=== PATIENT | female | born 2000 | race Two or more races ===

== ENCOUNTER → 2024-03-30 | Outpatient (CLI) | payer MEDICAID ==
[2024-03-30 11:18] LABS: Basophils # (auto) 0 10 ^3/uL (0-0.2); Basophils % (auto) 0.3 % (0.0-2.0); Eosinophils # (auto) 0.1 10 ^3/uL (0-0.8); Eosinophils % (auto) 1.5 % (0.0-7.0); Hematocrit 39.9 % (36.0-46.0); Hemoglobin 13.5 g/dL (12.2-16.2); Lymphocytes # (auto) 2.1 10 ^3/uL (0.4-5.4); Lymphocytes % (auto) 22.2 % (10.0-50.0); Mean Corpuscular Hemoglobin 30.6 pg (28.0-32.0); Mean Corpuscular Hgb Conc. 33.8 g/dL (32.0-36.0); Mean Corpuscular Volume 90.5 fL (80.0-100.0); Monocytes # (auto) 0.4 10 ^3/uL (0-1.3); Monocytes % (auto) 4.6 % (0.0-12.0); Neutrophils # (auto) 6.8 10 ^3/uL (1.6-8.6); Neutrophils % (auto) 71.4 % (37.0-80.0); Red Blood Cells 4.41 10^6/uL (4.0-5.20); White Blood Cell 9.5 10^3/uL (4.4-10.8)
[2024-03-30 12:00] LABS: Alanine Aminotransferase 13 U/L (7-40); Albumin 4.2 g/dL (3.2-4.8); Alkaline Phosphatase 114 U/L (46-116); Anion Gap 6 (5-15); Aspartate Aminotransferase 18 U/L (13-40); Bilirubin, Total 0.3 mg/dL (0.2-1.0); Calcium 9.5 mg/dL (8.5-10.1); Carbon Dioxide 26 mmol/L (20-30); Chloride 106 mmol/L (98-107); Glucose 73 mg/dL (74-106); Potassium 3.6 mmol/L (3.5-5.1); Sodium 138 mmol/L (136-145); Total Protein 6.9 g/dL (5.7-8.2)
[2024-03-30 12:04] LABS: Thyroid Stimulating Hormone 4.31 uIU/mL (0.358-3.74)
[2024-03-30 12:06] LABS: BUN/Creatinine Ratio 10.4 (10.0-20.0); Blood Urea Nitrogen < 5 mg/dL (9-23)
[2024-03-30 12:26] LABS: Amphetamine Screen, Urine Neg (NEGATIVE)
[2024-03-30 12:27] LABS: Barbiturate Scree,Urine Neg (NEGATIVE); Benzodiazephine Screen, Urine Neg (NEGATIVE); Cocaine Screen, Urine Neg (NEGATIVE)
[2024-03-30 12:28] LABS: Cannabinoid Screen, Urine Neg (NEGATIVE); Opiate Scree,Urine Neg (NEGATIVE); Phencyclidine Screen, Urine Neg (NEGATIVE)
[2024-03-31 09:06] LABS: RPR Non Reactive (Non Reactive)
[2024-03-31 10:07] LABS: Varicella Zoster IgG Antibody <135 index (Immune >165)
[2024-04-01 08:06] LABS: Chlamydia Trachomatis, NAA Negative (Negative); Neisseria gonorrhoeae, NAA Negative (Negative)
== END | disposition home or self-care (01) ==
LOC: LAB 10:30
PROVIDERS: ATTEND Obstetrics & Gynecology
DX: Z34.80 Encounter for supervision of other normal pregnancy, unspecified trimester (principal); Z3A.00 Weeks of gestation of pregnancy not specified
CPT/HCPCS: 36415; 80053; 80307; 83036; 84439; 84443; 84702; 85025; 86592; 86703; 86762; 86787; 86850; 86900; 86901; 87086; 87340

== ENCOUNTER → 2024-04-04 | Outpatient (CLI) | payer MEDICAID ==
[2024-04-06 16:06] LABS: QuantiFERON-TB Gold Plus Positive (Negative)
== END | disposition home or self-care (01) ==
LOC: LAB 08:15
PROVIDERS: ATTEND Obstetrics & Gynecology
DX: Z34.80 Encounter for supervision of other normal pregnancy, unspecified trimester (principal); Z3A.00 Weeks of gestation of pregnancy not specified
CPT/HCPCS: 82951

== ENCOUNTER 2024-06-11 10:50 | Inpatient (IN) | payer MEDICAID ==
[~2024-06-11] VITALS: Ht 157.5 cm; Wt 70.3 kg
[2024-06-11] VITALS (8 sets, daily range): BP systolic 103–114; BP diastolic 59–81; PULSE 68–80; RESP 16–18; TEMP 98.8; O2SAT 95–100
[2024-06-11] MEDS ORDERED: ePHEDrine SULFATE 50 MG/ML AMP IV ONE (11:19)
[2024-06-11 13:15] LABS: Fern Testing Positive
[2024-06-11 13:18] LABS: Urine Bacteria FEW /hpf (None Seen); Urine Blood Negative /uL (Negative); Urine Budding Yeast OCCASIONAL /hpf (None Seen); Urine Clarity Clear (Clear); Urine Protein, UAD Negative (Negative); Urine Specific Gravity 1.002 (1.001-1.035); Urine Urobilinogen Normal (Negative); Urine WBC 6 /hpf (0 - 5); Urine pH 6.5 (5.0-9.0)
[2024-06-11 13:19] LABS: Urine Color STRAW (Yellow)
[2024-06-11 14:32] LABS: Basophils # (auto) 0 10 ^3/uL (0-0.2); Basophils % (auto) 0.4 % (0.0-2.0); Eosinophils # (auto) 0.1 10 ^3/uL (0-0.8); Eosinophils % (auto) 0.6 % (0.0-7.0); Hematocrit 44.5 % (36.0-46.0); Hemoglobin 15.3 g/dL (12.2-16.2); Lymphocytes # (auto) 2.1 10 ^3/uL (0.4-5.4); Lymphocytes % (auto) 18.4 % (10.0-50.0); Mean Corpuscular Hemoglobin 30.8 pg (28.0-32.0); Mean Corpuscular Hgb Conc. 34.3 g/dL (32.0-36.0); Mean Corpuscular Volume 89.8 fL (80.0-100.0); Monocytes # (auto) 0.5 10 ^3/uL (0-1.3); Monocytes % (auto) 4.6 % (0.0-12.0); Neutrophils # (auto) 8.5 10 ^3/uL (1.6-8.6); Nucleated Red Blood Cells % 0.1 %; Platelet Count (auto) 201 10^3/uL (140-450); Red Blood Cells 4.95 10^6/uL (4.0-5.20); Red Cell Distribution Width 14.2 % (11.8-14.3); White Blood Cell 11.2 10^3/uL (4.4-10.8)
[2024-06-11 14:44] LABS: INR 0.97 (0.9-1.15); Partial Thromboplastin Time 28.2 SEC (24.5-34.5); Prothrombin Time 10.3 sec (9.3-11.8)
[2024-06-11 14:58] LABS: Alanine Aminotransferase 10 U/L (7-40); Albumin 4.2 g/dL (3.2-4.8); Alkaline Phosphatase 302 U/L (46-116); Anion Gap 8 (5-15); Aspartate Aminotransferase 14 U/L (13-40); Calcium 9.8 mg/dL (8.7-10.4); Carbon Dioxide 22 mmol/L (20-30); Chloride 107 mmol/L (98-107); Glucose 70 mg/dL (74-106); Potassium 3.7 mmol/L (3.5-5.1); Sodium 137 mmol/L (136-145)
[2024-06-11 14:59] LABS: Bilirubin, Total 0.6 mg/dL (0.2-1.0); Total Protein 6.9 g/dL (5.7-8.2)
[2024-06-11 15:06] LABS: BUN/Creatinine Ratio 9.4 (10.0-20.0); Blood Urea Nitrogen < 5 mg/dL (9-23)
[2024-06-11] MEDS: LACTATED RINGER'S 1,000 ML IV ONE (15:06)
[2024-06-11 15:14] LABS: Hepatitis B Surface Antigen Negative (Negative)
[2024-06-11 15:35] LABS: Hepatitis C Antibody Negative (Negative)
[2024-06-11] MEDS: ceFAZolin 2 GM/D5W50ml 50 ML IV ONE (15:52)
[2024-06-11] MEDS: SODIUM CITR/CITRIC ACID ORAL SOLN 30 ML PO SCH (15:54)
[2024-06-11] MEDS ORDERED: MORPHINE SULF PF 5 MG/10 ML VIAL ONE (16:07)
[2024-06-11] MEDS: LACTATED RINGER'S 1,000 ML IV SCH (16:11)
[2024-06-11] MEDS ORDERED: ONDANSETRON HCL 4 MG/2 ML VIAL ONE (18:08)
[2024-06-11] MEDS ORDERED: oxyTOCIN 10 UNIT/ML 10ML VIAL ONE (18:08)
[2024-06-11] MEDS ORDERED: ONDANSETRON HCL 4 MG/2 ML VIAL IV PRN ×2 (18:15→18:30)
[2024-06-11] MEDS ORDERED: KETOROLAC TROMETH 30 MG/ML 1ML VIAL IV PRN (18:15)
[2024-06-11] MEDS: GUM (CHEWING) 1 GUM CHEW CHEW ONE (18:15)
[2024-06-11] MEDS ORDERED: HYDROmorphone HCL 2 MG/ML VL/or syr IV PRN ×2 (18:15→18:30)
[2024-06-11] MEDS ORDERED: NALOXONE HCL 0.4 MG/ML VIAL IV PRN (18:30)
[2024-06-11] MEDS: NALBUPHINE HCL 10 MG/1ml INJECTION SUBCUT ONE (18:30)
[2024-06-11] MEDS ORDERED: DexAMETHasone SOD PHOS 10MG/1ML VIAL INJ IV PRN (18:30)
[2024-06-11 19:50] LABS: Amphetamine Screen, Urine Neg (NEGATIVE); Barbiturate Scree,Urine Neg (NEGATIVE); Benzodiazephine Screen, Urine Neg (NEGATIVE); Cocaine Screen, Urine Neg (NEGATIVE); Opiate Scree,Urine Neg (NEGATIVE); Phencyclidine Screen, Urine Neg (NEGATIVE)
[2024-06-11 19:51] LABS: Cannabinoid Screen, Urine Neg (NEGATIVE)
[2024-06-11] MEDS: ceFAZolin 1GM/50ML 50 ML IV SCH (22:39)
[2024-06-12] VITALS (19 sets, daily range): BP systolic 99–112; BP diastolic 52–88; PULSE 60–87; RESP 15–18; TEMP 98–98.4; O2SAT 96–100
[2024-06-12] MEDS: TETRACAINE 1% INJ 2 ML VIAL IJ ONE (00:29)
[2024-06-12] MEDS: ACETAMINOPHEN IV 1000 MG/100ML (10MG/ML) IV PRN (02:45)
[2024-06-12] MEDS: LACT. RINGERS/OXYTOCIN 20UNITS 1,000 ML IV ONE (03:05)
[2024-06-12 06:44] LABS: Basophils # (auto) 0 10 ^3/uL (0-0.2); Basophils % (auto) 0.4 % (0.0-2.0); Eosinophils # (auto) 0 10 ^3/uL (0-0.8); Eosinophils % (auto) 0.4 % (0.0-7.0); Hematocrit 36.1 % (36.0-46.0); Hemoglobin 12.6 g/dL (12.2-16.2); Lymphocytes # (auto) 2.1 10 ^3/uL (0.4-5.4); Lymphocytes % (auto) 16.6 % (10.0-50.0); Mean Corpuscular Hemoglobin 31.4 pg (28.0-32.0); Mean Corpuscular Hgb Conc. 34.8 g/dL (32.0-36.0); Mean Corpuscular Volume 90.3 fL (80.0-100.0); Monocytes % (auto) 7.8 % (0.0-12.0); Neutrophils # (auto) 9.5 10 ^3/uL (1.6-8.6); Neutrophils % (auto) 74.8 % (37.0-80.0); Platelet Count (auto) 165 10^3/uL (140-450); Red Cell Distribution Width 13.9 % (11.8-14.3); White Blood Cell 12.7 10^3/uL (4.4-10.8)
[2024-06-12] MEDS: KETOROLAC TROMETH 30 MG/ML 1ML VIAL IV PRN (07:42)
[2024-06-12] MEDS ORDERED: BISACODYL 10 MG RECT SUPP PR PRN (14:15)
[2024-06-12] MEDS ORDERED: HYDROcodone-ACET 5/325MG TAB PO PRN (14:15)
[2024-06-12] MEDS: diphenhdrAMINE HCL 50 MG/1 ML VL IV PRN (14:28)
[2024-06-12] MEDS: IBUPROFEN 800 MG TAB PO PRN (16:25)
[2024-06-12] MEDS: SIMETHICONE 80 MG CHEWABLE TABLET PO SCH (17:37)
[2024-06-12] MEDS: HYDROcodone-ACET 5/325MG TAB PO PRN (21:53)
[2024-06-12] MEDS: DOCUSATE SOD 100 MG CAP PO SCH (21:54)
[2024-06-13 02:56] VITALS: BP 110/59; PULSE 67; RESP 18; TEMP 98; O2SAT 98
[2024-06-13 06:43] VITALS: BP 117/71; PULSE 68; RESP 18; TEMP 97.6; O2SAT 98
[2024-06-13] MEDS ORDERED: IBUP-1455 PO (08:15)
[2024-06-13] MEDS ORDERED: HYDR-4902 PO (08:15)
[2024-06-13] MEDS: DOCUSATE CALCIUM 240 MG CAP PO SCH (11:08)
[2024-06-13] MEDS: TETANUS-DIPTH-ACEL PERTUSSIS 0.5ML SYR Tdap IM ONE (11:10)
[2024-06-13] MEDS: MEASLES, MUMPS & RUBELLA VAC(MMRII) 0.5ML SC ONE (11:15)
[2024-06-13] MEDS: RHO (D) IMMUNE GLOBULIN 300 MCG INJ IM ONE (11:18)
[2024-06-13 11:20] VITALS: BP 114/69; PULSE 65; RESP 18; TEMP 97.5; O2SAT 98
[2024-06-20 12:45] LABS: RPR Non Reactive (Non Reactive)
== END 2024-06-13 12:26 | disposition home or self-care (01) | DRG 540 ==
LOC: UNDOADMOB 10:50 → LDRP 10:50 → OBSVTOIN 13:34 → LDRP 18:46
PROVIDERS: ADMIT Obstetrics & Gynecology; ATTEND Obstetrics & Gynecology
PROC: 3E0334Z Introduction of Serum, Toxoid and Vaccine into Peripheral Vein, Percutaneous Approach (ICD-10-PCS; 2024-06-11)
PROC: 10D00Z1 Extraction of Products of Conception, Low, Open Approach (ICD-10-PCS; principal; 2024-06-11 16:48)
DX: O42.92 Full-term premature rupture of membranes, unspecified as to length of time between rupture and onset of labor (principal); R71.0 Precipitous drop in hematocrit; O34.211 Maternal care for low transverse scar from previous cesarean delivery; O75.89 Other specified complications of labor and delivery; O36.0130 Maternal care for anti-D [Rh] antibodies, third trimester, not applicable or unspecified; Z67.41 Type O blood, Rh negative; Z3A.38 38 weeks gestation of pregnancy; Z37.0 Single live birth
CPT/HCPCS: 36415; 59025; 71045; 76818; 80053; 80307; 81001; 81002; 84112; 85025; 85610; 85730; 86592; 86703; 86803; 86850; 86870; 86900; 86901; 87340; 90384; 90715; 94760; 94762; 96360; 96361; 96365; 96366; 96374; 96375; G0378; J0131; J1885; J2405; J2590